=== PATIENT | male | born 1995 | race African-American/Black ===

== ENCOUNTER 2019-12-19 19:22 | Emergency (ER) | payer BC ==
[~2019-12-19] VITALS: Ht 182.9 cm; Wt 81.6 kg
--- NOTE | 2019-12-19 19:35 | NUR ---
CALLED PT 3X IN ER LOBBY, NO RESPONSE OR PT SEEN.
--- NOTE | 2019-12-19 19:50 | NUR ---
CALLED PT 3X IN ER LOBBY AGAIN, NO RESPONSE OR PT SEEN AT THIS TIME.
--- NOTE | 2019-12-19 19:50 | NUR ---
PATIENT LEFT WITHOUT BEING SEEN BY DR. BANG. NO FURTHER CARE PROVIDED FOR PATIENT.
[2019-12-19 21:49] VITALS: BP 129/84
--- NOTE | 2019-12-19 21:49 | NUR ---
PT RETURNED BACK TO ER LOBBY. PT IS BEING SEEN AND TRIAGED AT THIS TIME.
--- NOTE | 2019-12-19 21:49 | NUR ---
SPOKE TO PATIENT ON PHONE -- STATES THAT HE WAS WAITING IN HIS CAR AND DID NOT HEAR [facility] INSTALLER TECH CALLING FOR TRIAGE. INSTRUCTED PAT[facility] IF HE STILL REQUIRED MEDICAL CARE.
--- NOTE | 2019-12-19 21:55 | NUR ---
PT AMBULATED TO BED 6.
--- NOTE | 2019-12-19 22:12 | NUR ---
dr. jaramillo at bedside for medical evaluation
--- NOTE | 2019-12-19 22:30 | NUR ---
PT ASSESSMENT COMPLETED BY DR. BANG , NO NURSING INTERVENTION NEEDED AT THIS TIME.
[2019-12-19 22:34] VITALS: BP 129/84
--- NOTE | 2019-12-19 22:34 | NUR ---
Patient discharged with v/s stable. Written and verbal after care instructions given and explained. Patient alert, oriented and verbalized understanding of instructions. Ambulatory with steady gait. All questions addressed prior to discharge. ID band removed. Patient advised to follow up with PMD. Rx of VYVANSE given. Patient educated on indication of medication including possible reaction and side effects. Opportunity to ask questions provided and answered.
== END 2019-12-19 22:34 | disposition home or self-care (01) ==
LOC: MED 19:22
DX: F90.9 Attention-deficit hyperactivity disorder, unspecified type (principal); Z76.0 Encounter for issue of repeat prescription; Z88.0 Allergy status to penicillin; Z88.1 Allergy status to other antibiotic agents
CPT/HCPCS: 99281; 99283